=== PATIENT | female | born 1990 | race Caucasian/White ===

== ENCOUNTER 2022-11-05 18:48 | Inpatient (IN) | payer OTHER ==
[~2022-11-05] VITALS: Ht 175.3 cm; Wt 97.7 kg
[2022-11-05] VITALS (10 sets, daily range): BP systolic 122–155; BP diastolic 62–85; PULSE 78–100; TEMP 98.3–98.5
[~2022-11-05 18:48] MED LIST: PREDNISONE20 MG PO; PRENATAL TABLET PO
--- NOTE | 2022-11-05 19:10 | NUR ---
G1 at 39 weeks and 5 days arrives to unit with complaint of contractions every 4 minutes for the past 4 hours but have increased in intensity for the last hour. Pt denies LOF and reports good movement. Pt states she has some bleeding that is like bloody show. Pt denies any problems this . Denies headaches, blurry vision, or RUQ pain. Clean gown on, oriented to room, call light within reach, bed in low and locked position. US and toco explained and applied. Vitals obtained. Admission assessment started. SVE 390/-2, membranes intact.
--- NOTE | 2022-11-05 20:15 | NUR ---
SVE at this time. Unchanged from previous exam, pt thinks contractions are increasing in intensity. Reviewed plan of care with patient giving the option to labor at home or stay for additional hour labor check. Pt would like to stay and be checked again in an hour and would like to ambulate. Monitors off so patient can void and ambulate in hallway/bounce on birthing ball.
--- NOTE | 2022-11-05 22:17 | NUR ---
2210 - Rach Oropeza CRNA on unit, notified that patient is ready for epidural. 2212 - Pt positioned to sitting on edge of bed. Lambert at bedside reviewing epidural procedure, risks, and benefits with patient, verbalized understanding. 2215 - Difficulty tracing FHR continuously due to maternal positioning. 2217 - Single shot by LUCIAN Verdin. Pt denies any adverse reactions. 2222 - Pt positioned to right lateral with pillow support for comfort. Pt educated on safety precautions, bed in low and locked position, call light within reach. See anesthesia record.
[2022-11-05 22:20] LABS: BASO # 0.1 K/mm3 (0.0-0.2); BASO % 0.4 % (0.0-2.0); EOS % 0.2 % (0.0-4.0); GRAN # 12.6 K/mm3 (1.4-6.5); GRAN % 73.5 % (42.2-75.2); HEMOGLOBIN 11.8 g/dl (12.5-16.0); LYMPH # 2.9 K/mm3 (1.2-3.4); LYMPH % 16.7 % (20.0-51.0); MEAN CELL VOLUME 88 fl (80.0-100.0); MEAN CORPUSCULAR HEMOGLOBIN 30 pg (27-31); MEAN CORPUSCULAR HGB CONC 34 g/dl (33.0-37.0); MEAN PLATELET VOLUME 10.5 fl (7.4-10.4); MONO # 1.4 K/mm3 (0.1-0.6); MONO % 8.4 % (1.7-9.3); PLATELET COUNT 312 K/mm3 (130-400); RED BLOOD COUNT 3.89 M/mm3 (4.10-5.30); REDCELL DISTRIBUTION WIDTH-CV 13.1 % (11.5-14.5)
[2022-11-05 22:21] LABS: HEMATOCRIT 34.4 % (37.0-47.0)
--- NOTE | 2022-11-05 23:25 | NUR ---
Reno catheter placed to dependent drainage at this time. Clear yellow urine out. Secured to leg with statlock. SVE /-2. Positioned to right lateral for comfort.
[2022-11-06] VITALS (23 sets, daily range): BP systolic 109–150; BP diastolic 56–78; PULSE 70–100; TEMP 98–98.2
--- NOTE | 2022-11-06 00:45 | NUR ---
Pt calls out stating she felt large gush of fluid and is feeling rectal pressure. Meconium fluid on peritowel. SVE complete/0 but with bulging forebag.
--- NOTE | 2022-11-06 01:30 | NUR ---
0105 - Reno catheter removed. 125 clear yellow urine out. Pt educated on pushing positions and techniques, verbalized understanding. Positioned into footplates. Initial push at this time. 0130 - Good maternal effort with pushes. Variable decelerations down to 60-90 bpm with spontaneous return to baseline. 0230 - Pt continues to push well with contractions. This RN remains at bedside for pushing. Variable decelerations down to 90 bpm with spontaneous return to baseline noted with contractions.
--- NOTE | 2022-11-06 03:06 | NUR ---
0245 - Small crown and good maternal effort with pushes. Dr. Garrison called to bedside for delivery. Continues to have recurrent variable decelerations down to 90 bpm with spontaneous return to baseline with pushes. 0300 - Nursery RN, Michelle Shaw at bedside. Room set up for delivery. Dr. Garrison gowned and gloved at perineum. 0306 - Spontaneous vaginal delivery of viable infant girl. bulb suctioned by Dr. Garrison and then placed to mothers abdomen. Care of assumed to SUNDAY Mendez. Cord clamped x [address] Garrison and cut by FOB. Cord blood obtained. 309 - Straight cath by Dr. Garrison, 100 mL urine out. 031 - Spontaneous delivery of intact placenta. Pitocin started at 333 mL/hr per protocol. Second degree perineal laceration with right lateral extension repaired by Dr. Garrison. Fundus firm and down 1 from umbilicus. EBL [address] Garrison. 0325 - Epidural off. Pericare provided. New chux beneath patient and ice pack to perineum. Pt repositioned in bed for comfort. recovery started. See physician delivery note.
--- NOTE | 2022-11-06 05:45 | NUR ---
Pt states she feels like she needs to void. Unable to lift and hold right leg off of bed for 5 seconds. Pt positioned to sitting on edge of bed. Epidural catheter removed per protocol. Tip smooth, blue, and intact. Julissa lucio used to move patient to bathroom. Unable to void at this time. Pericare explained and provided. Mesh panties, peripad, and ice pack applied. New gown on. Pt educated on need of 3 measured voids. Pt transferred to [facility] with julissa lucio with belongings. Call light within reach. Educated to have nurse at bedside when patient ambulates again.
--- NOTE | 2022-11-07 07:55 | NUR ---
Rests in bed, alert. baby. Denies any needs at this time.
[2022-11-07 09:00] VITALS: BP 119/76; PULSE 71; TEMP 97.8
--- NOTE | 2022-11-07 09:22 | NUR ---
Initial visit; Parents thanked Strip Winder for offering Congratulations and God's blessings for the of their daughter. Strip Winder thanked family for choosing [facility].
--- NOTE | 2022-11-07 13:30 | NUR ---
Rests in bed, alert, denies any needs at this time.
== END 2022-11-07 14:45 | disposition home or self-care (01) | DRG 807 ==
LOC: LDRO 18:48 → LDR 21:43 → LDRO 21:44 → OB 22:41 → LDR 22:41 → OB 11-06 06:00
PROVIDERS: Obstetrics & Gynecology; ADMIT Obstetrics & Gynecology
PROC: 10E0XZZ Delivery of Products of Conception, External Approach (ICD-10-PCS; principal; 2022-11-06)
PROC: 0KQM0ZZ Repair Perineum Muscle, Open Approach (ICD-10-PCS; 2022-11-06)
PROC: 0UQMXZZ Repair Vulva, External Approach (ICD-10-PCS; 2022-11-06)
DX: O77.0 Labor and delivery complicated by meconium in amniotic fluid (principal); Z37.0 Single live birth; Z3A.39 39 weeks gestation of pregnancy; O70.1 Second degree perineal laceration during delivery; O69.81X0 Labor and delivery complicated by cord around neck, without compression, not applicable or unspecified; Z67.91 Unspecified blood type, Rh negative; Z23 Encounter for immunization
CPT/HCPCS: J2405; J2590; J2791; J7120